=== PATIENT | male | born 1950 | race Caucasian/White ===

== ENCOUNTER 2016-05-11 02:55 | Inpatient (IN) | payer OTHER ==
[~2016-05-11] VITALS: Ht 185.4 cm; Wt 113.3 kg
[2016-05-11] VITALS (15 sets, daily range): BP systolic 101–179; BP diastolic 57–93; PULSE 65–99; RESP 16–18; TEMP 98.4–103.1; O2SAT 9–100
[~2016-05-11 02:55] MED LIST: ATEN1TAB74 PO; CLAR10TA13 PO; CYMB60CA PO; MORP100T40 PO; NEUR600T PO; OXYC-103 PO; POTA25TA4 PO; ZANA4CAP PO
[2016-05-11] MEDS ORDERED: VANCOMYCIN INJ 1,500 MG in SODIUM CHLORID 0.9% 500 ML INJ 500 ML IV ONE (03:30)
[2016-05-11] MEDS ORDERED: metroNIDAZOLE 500 MG INJ 100 ML IV ONE (03:30)
--- NOTE | 2016-05-11 03:42 | PD ---
HPI Chief Complaint: Fever Time Seen by Provider: 03:21 Travel History International Travel<30 days: No Contact w/Intl Traveler<30days: No Traveled to known affect area: No History of Present Illness HPI 66-year-old male presents to the emergency department by private transportation in the care of his spouse for evaluation of fever and chills. According to the just prior to arrival to the emergency department around 2 AM patient had a shaking chill with associated right ureter. administer ibuprofen. Patient is been taking Cipro for complaint of lower abdominal pain onset consistent with history of previous episodes of diverticulitis. Patient denies any abdominal pain at this time. Patient's spouse have not noticed any complaint of headache no sore throats states throat is chronically sore because of postnasal drainage or cough congestion shortness of breath abdominal pain at this time nausea vomiting diarrhea dysuria frequency urgency new joint pain or joint swelling or skin rash. Reportedly on before taking Cipro patient did have bloody mucoid stool. Patient has been admitted before in the past for sepsis related to diverticulitis. Patient also has history of atrial fibrillation and only takes aspirin for and coagulation therapy also has history of significant chronic back pain with previous surgeries pain pump and nerve stimulator and is on multiple chronic pain medications daily. Patient rates discomfort at this time 7/10 in intensity consistent with his chronic pain syndrome. Patient is unable to identify exacerbating or alleviating factors. PFSH Past Medical History Narrative Medical Atrial fibrillation, chronic pain syndrome, diverticulitis, hypertension, spinal stenosis, back surgery 2, morphine pump, nerve stimulator, no alcohol use no tobacco use; nursing notes reviewed Blood Disorders: No Cancer: No Cardiovascular Problems: Yes Diminished Hearing: No Endocrine: No Gastrointestinal Disorders: Yes (DIVERTICULITIS/DUODENUM) Genitourinary: No Hypertension: Yes Immune Disorder: No Implanted Vascular Access Dvce: Yes Musculoskeletal: Yes ("spinal stenosis") Neurologic: Yes (CHRONIC BACK PAIN) Psychiatric: No Reproductive: No Respiratory: No ?: Not Past Surgical History Abdominal Surgery: No Body Medical Devices: NONFUNCTIONING NERVE STIMULATOR Cardiac Surgery: No Ear Surgery: No Endocrine Surgery: No Eye Surgery: No Genitourinary Surgery: No Gynecologic Surgery: No Oral Surgery: No Thoracic Surgery: No Tonsillectomy: Yes Other Surgery: Yes ("back surgery twice,nerve stimulators placed,still in but not working") Social History Alcohol Use: No Tobacco Use: No (electronic cig) Substance Use: No Allergies-Medications (Allergen,Severity, Reaction): Coded Allergies: Cephalosporins (Verified Allergy, Severe, RASH, 05/11/16) Erythromycin (Verified Allergy, Severe, 05/11/16) Penicillin (Verified Allergy, Severe, RASH, 05/11/16) Sulfa (Verified Allergy, Severe, 05/11/16) Reported Meds & Prescriptions Reported Meds & Active Scripts Active Reported Valium (Diazepam) 10 Mg Tab 10 Mg PO BID PRN Cipro (Ciprofloxacin HCl) 500 Mg Tab 500 Mg PO BID Ibuprofen 600 Mg Tab 600 Mg PO Q6H PRN Lortab (Hydrocodone-Acetaminophen) 10-325 Mg Tab 1 Tab PO Q4H PRN Zanaflex (Tizanidine HCl) 4 Mg Tab 4 Mg PO TID Oxycontin (Oxycodone HCl) 10 Mg Tab 10 Mg PO Q8HR Morphine Sulfate CR (Morphine Sulfate) 100 Mg Tab Q6HR Claritin-D 24 HR (Loratadine-Pseudoephedrine 24 HR) 10-240 Mg Tab 1 Tab PO DAILY Neurontin (Gabapentin) 600 Mg Tab 600 Mg PO BID Cymbalta DR (Duloxetine HCl) 60 Mg Capdr 60 Mg PO DAILY Tenormin (Atenolol) 50 Mg Tab 50 Mg PO BID Review of Systems Except as stated in HPI: all other systems reviewed are Neg General / Constitutional: Positive: Fever, Chills HENT: Positive: Sore Throat (chronic), No: Headaches, Rhinorrhea, Congestion, Neck Pain Cardiovascular: No: Chest Pain or Discomfort, Palpitations, Tachycardia, Diaphoresis Respiratory: No: Cough, Shortness of Breath, Wheezing Gastrointestinal: Positive: Diarrhea, No: Nausea, Vomiting, Abdominal Pain ( ) Genitourinary: No: Dysuria, Flank Pain Musculoskeletal: Positive: Pain (chronic low back pain), No: Myalgias, Arthralgias Neurologic: No: Weakness, Dizziness, Syncope, Focal Abnormalities, Coordination Problem Psychiatric: No: Anxiety Endocrine: No: Heat Intolerance, Cold Intolerance Hematologic/Lymphatic: No: Easy Bruising Physical Exam Narrative GENERAL: Well-developed well-nourished pale male in no acute distress no respiratory distress SKIN: Warm and dry. Fine dry rash without petechia or purpura or vesicles or pustules HEAD: Atraumatic. Normocephalic. EYES: Pupils equal and round. No scleral icterus. No injection or drainage. ENT: No nasal bleeding or discharge. Mucous membranes pink and moist. Airway is patent. No sinus tenderness to percussion. NECK: Trachea midline. No JVD. Supple no meningismus no nuchal rigidity nontender to direct palpation along the cervical spine CARDIOVASCULAR: Intermittently increased irregular irregular rate and rhythm. RESPIRATORY: No accessory muscle use. Clear to auscultation. Breath sounds equal bilaterally. GASTROINTESTINAL: Abdomen soft, non-tender, nondistended. Hepatic and splenic margins not palpable. MUSCULOSKELETAL: Extremities without clubbing, cyanosis, or edema. No obvious deformities. NEUROLOGICAL: Awake and alert. No obvious cranial nerve deficits. Motor grossly within normal limits. Five out of 5 muscle strength in the arms and legs. Normal speech. PSYCHIATRIC: Appropriate mood and affect; insight and judgment normal. Data Data Last Documented VS Vital Signs Date Time Temp Pulse Resp B/P Pulse Ox O2 Delivery O2 Flow Rate FiO2 05/11/16 05:35 100.0 05/11/16 04:51 87 16 132/76 Nasal Cannula 2 05/11/16 03:30 96 Orders Electrocardiogram (05/11/16 03:21) Complete Blood Count With Diff (05/11/16 03:21) Comprehensive Metabolic Panel (05/11/16 03:21) Prothrombin Time / Inr (Pt) (05/11/16 03:21) Act Partial Throm Time (Ptt) (05/11/16 03:21) Lactic Acid Sepsis Protocol (05/11/16 03:21) Magnesium (Mg) (05/11/16 03:21) Lipase (05/11/16 03:21) Troponin I (05/11/16 03:21) Urinalysis - C+S If Indicated (05/11/16 03:21) Blood Culture (05/11/16 03:21) Chest, Single Ap (05/11/16 03:21) Blood Glucose (05/11/16 03:21) Ecg Monitoring (05/11/16 03:21) Iv Access Insert/Monitor (05/11/16 03:21) Oximetry (05/11/16 03:21) Oxygen Administration (05/11/16 03:21) Ct Abd/Pel W Iv Contrast(Rout) (05/11/16 03:21) Vancomycin Inj (Vancomycin Inj) (05/11/16 03:30) Metronidazole 500 Mg Inj (Flagyl 500 Mg (05/11/16 03:30) Acetaminophen (Tylenol) (05/11/16 04:15) Sodium Chlor 0.9% 1000 Ml Inj (Ns 1000 M (05/11/16 04:45) Aztreonam Inj (Azactam Inj) (05/11/16 05:15) Sodium Chlor 0.9% 1000 Ml Inj (Ns 1000 M (05/11/16 05:15) Iohexol 350 Inj (Omnipaque 350 Inj) (05/11/16 05:34) Sodium Chlor 0.9% 1000 Ml Inj (Ns 1000 M (05/11/16 05:45) Labs Laboratory Tests Test 05/11/16 05/11/16 04:00 04:20 White Blood Count 11.5 TH/MM3 Red Blood Count 4.95 MIL/MM3 Hemoglobin 14.9 GM/DL Hematocrit 45.9 % Mean Corpuscular Volume 92.6 FL Mean Corpuscular Hemoglobin 30.0 PG Mean Corpuscular Hemoglobin 32.4 % Concent Red Cell Distribution Width 14.2 % Platelet Count 235 TH/MM3 Mean Platelet Volume 7.6 FL Neutrophils (%) (Auto) 91.2 % Lymphocytes (%) (Auto) 3.3 % Monocytes (%) (Auto) 3.6 % Eosinophils (%) (Auto) 0.2 % Basophils (%) (Auto) 1.7 % Neutrophils # (Auto) 10.5 TH/MM3 Lymphocytes # (Auto) 0.4 TH/MM3 Monocytes # (Auto) 0.4 TH/MM3 Eosinophils # (Auto) 0.0 TH/MM3 Basophils # (Auto) 0.2 TH/MM3 CBC Comment DIFF FINAL Differential Comment Prothrombin Time 11.3 SEC Prothromb Time International 1.0 RATIO Ratio Activated Partial 24.6 SEC Thromboplast Time Sodium Level 140 MEQ/L Potassium Level 4.6 MEQ/L Chloride Level 101 MEQ/L Carbon Dioxide Level 29.8 MEQ/L Anion Gap 9 MEQ/L Blood Urea Nitrogen 16 MG/DL Creatinine 1.10 MG/DL Estimat Glomerular Filtration 67 ML/MIN Rate Random Glucose 230 MG/DL Lactic Acid Level 4.2 mmol/L Calcium Level 8.9 MG/DL Magnesium Level 1.9 MG/DL Total Bilirubin 0.4 MG/DL Aspartate Amino Transf 12 U/L (AST/SGOT) Alanine Aminotransferase 21 U/L (ALT/SGPT) Alkaline Phosphatase 84 U/L Troponin I LESS THAN 0.02 NG/ML Total Protein 7.8 GM/DL Albumin 3.6 GM/DL Lipase 50 U/L Urine Color YELLOW Urine Turbidity CLEAR Urine pH 5.5 Urine Specific [place] 1.014 Urine Protein TRACE mg/dL Urine Glucose (UA) NEG mg/dL Urine Ketones NEG mg/dL Urine Occult Blood NEG Urine Nitrite NEG Urine Bilirubin NEG Urine Leukocyte Esterase NEG Urine Squamous Epithelial 0-5 /hpf Cells Urine Mucus OCC /lpf Microscopic Urinalysis Comment CULT NOT INDICATED MDM Medical Decision Making Medical Screen Exam Complete: Yes Emergency Medical Condition: Yes Medical Record Reviewed: Yes Interpretation(s) EKG: Atrial fibrillation with controlled ventricular response of [address] -T changes throughout with ST segment depression no acute ST segment elevation Q wave noted inferiorly age-indeterminate Chest x-ray bibasilar atelectasis versus scarring no clear lobar infiltrate reading by me CBC is automated differential white cell count 11,500 with 91% neutrophils marked left shift manual differential not performed Lactic acid: Elevated consistent with severe sepsis of 4.2 Metabolic panel remarkable for normal range bicarbonate, anion gap, but random hyperglycemia of 230 Urinalysis: Is in normal range Coagulation studies: Are within normal range Troponin I: Less than 0.02 Last Impressions Chest X-Ray 05/11/16320 Signed Impressions: Service Date/Time: Wednesday, May 11, 2016 04:16 - CONCLUSION: Mild linear opacities at the lung bases bilaterally likely representing atelectasis. Otherwise, no acute finding is identified. Ricardo Victoria MD Abdomen/Pelvis CT 05/11/16320 Signed Impressions: Service Date/Time: Wednesday, May 11, 2016 05:10 - CONCLUSION: 1. No acute finding is identified within the abdomen or pelvis. 2. There is airspace consolidation in the right lung base. 3. Nonacute findings include hepatomegaly and gallbladder sludge. Ricardo Victoria MD Differential Diagnosis Febrile illness, diverticulitis, pneumonia, sepsis Narrative Course IV access obtained specimens collected and sent for resulting patient administered IV Flagyl and vancomycin as he is taking Cipro since and is allergic to cephalosporins penicillin and erythromycin and sulfa drugs. Patient also ordered to receive normal saline at 125 cc per hour as patient is hypertensive; acetaminophen ordered Azactam 2 g IV piggyback ordered Patient's blood pressure 132 mmHg systolic and 1 L bolus normal saline administered with plan for additional liter bolus of normal saline was continued maintenance fluids at 1 25 cc per hour patient at 5:25 AM has returned from [place]; patient reports that he feels improved denies any chills denies any weakness denies shortness of breath denies chest pain denies abdominal pain nausea or vomiting or diarrhea. At 5:[address] Abdomen and pelvis with contrast is resulted per reading radiologist Dr. Cornejo no acute findings in the abdomen or pelvis airspace consolidation right lung base nonacute findings included hepatomegaly and gallbladder sludge Critical Care Narrative Aggregate critical care time was 35 minutes. Time to perform other separately billable procedures was not included in the critical care time. My time did not include minutes spent treating any other patients simultaneously or on activities that did not directly contribute to the patient's treatment. The services I provided to this patient were to treat and/or prevent clinically significant deterioration that could result in: Septic shock, I provided critical care services requiring my management, as noted below: Chart data review, documentation time, medication orders and management, vital sign assessments/reviewing monitor data, ordering and reviewing lab tests, ordering and interpreting/reviewing x-rays and diagnostic studies, care of the patient and discussion of the patient with the admitting physicians. Sepsis Criteria SIRS Criteria (2 or more): Temp > 100.9 or < 96.8, Heart rate over 90 Severe Sepsis (+one): Lactate >2 Septic Shock Criteria: Lactic acid >=4 Physician Communication Physician Communication call placed to drawing in hand service Diagnosis Primary Impression: Sepsis Additional Impression: Pneumonia Admitting Information Admitting Physician Requests: Admit Basia Garay MD May 11, 2016 03:42
[2016-05-11] MEDS ORDERED: NEUR600T PO (03:43)
[2016-05-11] MEDS ORDERED: OXYC-259 PO (03:43)
[2016-05-11] MEDS ORDERED: CYMB60CA PO (03:43)
[2016-05-11] MEDS ORDERED: LORA-400 PO (03:43)
[2016-05-11] MEDS ORDERED: TIZA4 PO (03:43)
[2016-05-11] MEDS ORDERED: MORP100T40 (03:43)
[2016-05-11] MEDS ORDERED: HYDR-3535 PO (03:43)
[2016-05-11] MEDS ORDERED: ATEN1TAB74 PO (03:43)
[2016-05-11] MEDS ORDERED: IBUP-232 PO (03:43)
[2016-05-11] MEDS ORDERED: CIPR-9 PO (03:43)
[2016-05-11 04:13] LABS: AUTOMATED NEUTROPHIL # 10.5 TH/MM3 (1.8-7.7); BASOPHIL # 0.2 TH/MM3 (0-0.2); BASOPHIL % 1.7 % (0.0-2.0); EOSINOPHIL % 0.2 % (0.0-4.0); HEMATOCRIT 45.9 % (39.0-51.0); LYMPH % 3.3 % (9.0-44.0); LYMPHOCYTE # 0.4 TH/MM3 (1.0-4.8); MEAN CELL VOLUME 92.6 FL (80.0-100.0); MEAN CORPUSCULAR HGB CONC 32.4 % (32.0-36.0); MONO % 3.6 % (0.0-8.0); NEUT % 91.2 % (16.0-70.0); PLATELET COUNT 235 TH/MM3 (150-450); RED BLOOD COUNT 4.95 MIL/MM3 (4.50-5.90); RED CELL DISTRIBUTION WIDTH 14.2 % (11.6-17.2); WHITE BLOOD COUNT 11.5 TH/MM3 (4.0-11.0)
[2016-05-11] MEDS ORDERED: DIAZ10 PO (04:13)
[2016-05-11] MEDS ORDERED: ACETAMINOPHEN 325 MG TAB PO ONE (04:15)
[2016-05-11 04:21] LABS: CHLORIDE 101 MEQ/L (98-107); POTASSIUM 4.6 MEQ/L (3.5-5.1); SODIUM (NA) 140 MEQ/L (136-145)
[2016-05-11 04:22] LABS: HEMO FLAGS DIFF FINAL
[2016-05-11 04:25] LABS: ANION GAP 9 MEQ/L (5-15); BICARBONATE 29.8 MEQ/L (21.0-32.0); BLOOD UREA NITROGEN 16 MG/DL (7-18); MAGNESIUM 1.9 MG/DL (1.5-2.5)
[2016-05-11 04:28] LABS: ALT (GPT) 21 U/L (12-78); AST (GOT) 12 U/L (15-37); GLOMERULAR FILTRATION RATE 67 ML/MIN (>89)
[2016-05-11 04:29] LABS: TOTAL BILIRUBIN ADULT 0.4 MG/DL (0.2-1.0)
[2016-05-11 04:30] LABS: BLOOD, URINE NEG (NEG); GLUCOSE,URINE NEG (NEG); KETONE, URINE NEG (NEG); NITRITE,URINE NEG (NEG); PH, URINE 5.5 (5.0-8.5)
[2016-05-11 04:31] LABS: ALKALINE PHOSPHATASE 84 U/L (45-117); APTT (PATIENT) 24.6 SEC (24.3-30.1); PROTHROMBIN TIME - PATIENT 11.3 SEC (9.8-11.6)
--- NOTE | 2016-05-11 04:38 | RADHPO ---
EXAM DATE/TIME: 05/11/2016 04:16 [facility] COMPARISON: CHEST SINGLE AP, June 07, 2013, 14:01. INDICATIONS : Fever. MEDICAL HISTORY : AFIB SURGICAL HISTORY : None. ENCOUNTER: Initial ACUITY: 1 day PAIN SCORE: 8/10 LOCATION: Bilateral chest FINDINGS: Portable AP view of the chest demonstrates a normal-sized cardiac silhouette. There are mild linear o pacities in the lower lung zones bilaterally. Otherwise, no effusion, consolidation, or pneumothorax is visualized. The bones and soft tissues demonstrate no acute abnormality. CONCLUSION: Mild linear opacities at the lung bases bilaterally likely representing atelectasis. Otherwise, no ac winifred finding is identified. Ricardo Victoria MD on May 11, 2016 at 4:36 Board Certified Radiologist. This report was verified electronically.
[2016-05-11 04:43] LABS: URINE COLOR YELLOW (YELLW/STRAW)
[2016-05-11 04:44] LABS: COMMENT (UR) CULT NOT INDICATED; CULTURE IF INDICATED CULT NOT INDICATED; MUCUS URINE OCC /lpf (OCC); SQUAMOUS EPITHELIAL CELL URINE 0-5 /hpf (0-5)
[2016-05-11] MEDS ORDERED: AZTREONAM INJ 2,000 MG in SODIUM CHLORIDE 0.9% INJ 100 ML IV ONE (05:15)
[2016-05-11] MEDS ORDERED: SODIUM CHLOR 0.9% 1000 ML INJ 1,000 ML IV ONE ×2 (05:15→05:45)
[2016-05-11] MEDS ORDERED: IOHEXOL 350 MG/ML 10 ML VIAL (for RAD DIAG) IV ONE (05:34)
[2016-05-11] MEDS: SODIUM CHLOR 0.9% 1000 ML INJ 1,000 ML IV SCH ×3 (05:34→23:02)
--- NOTE | 2016-05-11 05:48 | RADHPO ---
EXAM DATE/TIME: 05/11/2016 05:10 [facility] COMPARISON: CHEST SINGLE AP, May 11, 2016, 4:16. CT ABDOMEN & PELVIS W/O CONTRAST, May 13, 2009, 0:03. INDICATIONS : Lower abdominal pain four days ago. Fever today. IV CONTRAST: 96 cc Omnipaque 350 (iohexol) IV ORAL CONTRAST: No oral contrast ingested. RADIATION DOSE: 21.22 CTDIvol (mGy) MEDICAL HISTORY : Hypertension. Diverticulitis. Spinal stenosis. SURGICAL HISTORY : Nerve stimulator. ENCOUNTER: Initial ACUITY: 1 day PAIN SCALE: 0/10 LOCATION: Abdomen. TECHNIQUE: Volumetric scanning of the abdomen and pelvis was performed. Using automated exposure control and ad justment of the mA and/or kV according to patient size, radiation dose was kept as low as reasonably achievable to obtain optimal diagnostic quality images. FINDINGS: LOWER LUNGS: There is mild airspace consolidation at the right lung base. LIVER: The liver measures 22.1 cm in length. No focal lesion is seen. There is no dilation of the biliary t ree. No calcified gallstones. There is sludge layering within the gallbladder. No gallbladder wall t hickening or inflammation is present. SPLEEN: Normal size without lesion. PANCREAS: Within normal limits. KIDNEYS: Normal in size and shape. There is no mass, stone or hydronephrosis. ADRENAL GLANDS: Within normal limits. VASCULAR: There is no aortic aneurysm. There is mild atherosclerotic disease. BOWEL/MESENTERY: The stomach, small bowel, and colon demonstrate no acute abnormality. There is no free intraperitone al air or fluid. ABDOMINAL WALL: There is a subcutaneously implanted device along the right flank. There is also a subcutaneously impl anted neurostimulator device in the left gluteal region. RETROPERITONEUM: There is no lymphadenopathy. BLADDER: No wall thickening or mass. REPRODUCTIVE: Within normal limits. INGUINAL: There is no lymphadenopathy or hernia. MUSCULOSKELETAL: There are mild degenerative changes of the lumbar spine. Spinal stimulator leads extend into the thor acic spinal canal posteriorly. CONCLUSION: 1. No acute finding is identified within the abdomen or pelvis. 2. There is airspace consolidation in the right lung base. 3. Nonacute findings include hepatomegaly and gallbladder sludge. Ricardo Victoria MD on May 11, 2016 at 5:43 Board Certified Radiologist. This report was verified electronically.
[2016-05-11 06:06] LABS: LACTIC ACID GHOST NOT REPORTABLE
[2016-05-11] MEDS ORDERED: SODIUM CHLORIDE 0.9% FLUSH 10 ML FLUSH IVF PRN ×2 (06:15→06:30)
--- NOTE | 2016-05-11 06:33 | HHI.PR ---
Subjective Remarks I was notified by Dr. Garay of a patient requiring ICU admission for sepsis. Briefly, this 66yM with chronic pain, diabetes, history of diverticulitis presents with one day of LLQ pain and diarrhea and then fevers, chills. in the ER he had a leukocytosis, fever, lactate of 4. His work-up includes CT abd/ pelvis without overt intra-abdominal source, but does include basilar pulmonary consolidation. He received Vanc/Azactam/Flagyl IV and iv fluids. Because of his lactic acidosis and concern for sepsis, Dr. Garay feels an ICU bed is the most appropriate place to monitor him. Objective Vital Signs Date Time Temp Pulse Resp B/P Pulse Ox O2 Delivery O2 Flow Rate FiO2 05/11/16 05:35 100.0 05/11/16 04:51 102.6 87 16 132/76 Nasal Cannula 2 05/11/16 03:30 96 Nasal Cannula 2 05/11/16 03:30 102.9 87 16 98 Nasal Cannula 2 05/11/16 03:25 96 Nasal Cannula 2 05/11/16 03:15 90 16 179/91 94 05/11/16 03:02 103.1 99 18 158/88 92 Result Diagram: 05/11/16 0400 05/11/16 0400 Imaging Last Impressions Chest X-Ray 05/11/16320 Signed Impressions: Service Date/Time: Wednesday, May 11, 2016 04:16 - CONCLUSION: Mild linear opacities at the lung bases bilaterally likely representing atelectasis. Otherwise, no acute finding is identified. Ricardo Victoria MD Abdomen/Pelvis CT 05/11/16320 Signed Impressions: Service Date/Time: Wednesday, May 11, 2016 05:10 - CONCLUSION: 1. No acute finding is identified within the abdomen or pelvis. 2. There is airspace consolidation in the right lung base. 3. Nonacute findings include hepatomegaly and gallbladder sludge. Ricardo Victoria MD Objective Remarks I have personally evaluated the patient. briefly, this middle-aged obese male is lying in bed, in no acute distress. not tachypneic. normal rate, irregularly irregular rhythm. no peripheral edema noted. pleasant and conversant. Assessment and Plan Assessment and Plan Assessment: 66yM with chronic pain, diabetes, and recent diarrhea, fevers, chills, now with biomarker evidence of tissue hypoperfusion in the setting of probable infectious etiology. Severe sepsis is on the differential. Other causes of lactic acidosis and fever could be viral gastroenteritis with dehydration from diarrhea. Possible sources of sepsis in this patient are pneumonia, gastroenteritis, C.Diff colitis. I agree with Dr. Arellano' assessment that this patient appropriately responded to iv fluid resuscitation and is clinically improving. I think it may be prudent given his comorbid conditions to watch him for a short course in the Intensive Care Unit, but would have a low threshold for de-escalation of level of monitoring if he continues to improve. I think this patient can be safely managed by the admitting team. Recommendations: -- admit to the ICU -- the first coat operator service will be peripherally aware of the patient, but will not directly participate in the care and management of this patient unless asked to do so by the primary service. -- we are happy to re-evaluate the patient at any point if you have questions or concerns. I agree with the anticipated plan of iv abx, f/u culture data, iv fluid resuscitation, trending of lactic acid. Nick Jacobs MD May 11, 2016 06:32
[2016-05-11] MEDS ORDERED: MORP1TAB26 PO (06:58)
[2016-05-11] MEDS ORDERED: MORP1TAB27 PO (06:58)
[2016-05-11] MEDS ORDERED: SODIUM CHLORIDE 0.9% FLUSH 10 ML FLUSH IV FLUSH SCH (09:00)
[2016-05-11] MEDS ORDERED: PRAV40TA2 PO (11:14)
[2016-05-11] MEDS ORDERED: NALOXONE HCL 0.4 MG/ML AMP IV PRN (11:15)
[2016-05-11] MEDS ORDERED: ACETAMINOPHEN 325 MG TAB PO PRN (11:15)
[2016-05-11] MEDS ORDERED: ONDANSETRON HCL 4 MG/2 ML VIAL IVP PRN (11:15)
[2016-05-11] MEDS ORDERED: SODIUM CHLORIDE 0.9% FLUSH 10 ML FLUSH IV FLUSH PRN (11:15)
[2016-05-11] MEDS ORDERED: [UNRECOGNIZED DRUG - OTHER] PO (11:19)
[2016-05-11] MEDS ORDERED: ERGO1CAP10 PO (11:19)
[2016-05-11] MEDS ORDERED: CART120C PO (11:19)
[2016-05-11] MEDS ORDERED: ASPI325T PO (11:19)
[2016-05-11] MEDS ORDERED: MAGN200T PO (11:19)
[2016-05-11] MEDS ORDERED: DICY10CA12 PO (11:19)
[2016-05-11] MEDS ORDERED: COQ1200C PO (11:19)
[2016-05-11] MEDS ORDERED: BUTA1CAP PO (11:19)
[2016-05-11] MEDS ORDERED: DIGO0.25 PO (11:20)
[2016-05-11] MEDS ORDERED: GABAPENTIN 300 MG CAP PO SCH (12:00)
[2016-05-11] MEDS: DULoxetine HCl DR 60 MG CAP PO SCH (12:01)
[2016-05-11] MEDS: ATENOLOL 50 MG TAB PO SCH ×3 (12:01→23:54)
[2016-05-11] MEDS: ENOXAPARIN SODIUM 40 MG/0.4 ML SYRINGE SQ SCH (12:02)
[2016-05-11] MEDS ORDERED: oxyCODONE HCL 10 MG CONTROLLED RELEASE TAB PO SCH (14:00)
[2016-05-11] MEDS: AZTREONAM INJ 2,000 MG in SODIUM CHLORIDE 0.9% INJ 100 ML IV SCH ×2 (14:25→21:40)
[2016-05-11] MEDS: RESP: ALBUTEROL 2.5 MG/IPRATROPIUM 0.5 MG NEB (SCH) NEB ×2 (14:25→19:20)
[2016-05-11] MEDS: LEVOFLOXACIN 750 MG PREMIX INJ 150 ML IV SCH (15:09)
[2016-05-11] MEDS: MORPHINE SULFATE 60 MG CONTROLLED RELEASE TAB PO SCH ×2 (15:18→21:37)
--- NOTE | 2016-05-11 20:57 | EKG ---
Date Performed: 05/11/2016 Time Performed: 03:38:50 PTAGE: 66 years EKG: Atrial fibrillation. Short QT interval Extensive ST-T changes may be due to myocardial isch emia Abnormal ECG PREVIOUS TRACING : 06/07/2013 13.56 DOCTOR: Jordana Tierney Interpretating Date/Time 05/11/2016 20:56:25
[2016-05-11] MEDS ORDERED: MORPHINE SULFATE 100 MG CONTROLLED RELEASE TAB PO SCH (21:00)
[2016-05-11] MEDS: SODIUM CHLORIDE 0.9% FLUSH 10 ML FLUSH IV FLUSH SCH (21:00)
--- NOTE | 2016-05-11 21:00 | MH ---
cc: GABRIELA VICTORIA DATE OF ADMISSION 05/11/2016 ADMISSION DIAGNOSIS Pneumonia. HISTORY OF PRESENT ILLNESS Mr. Thompson is a 66-year-old gentleman who presented to the emergency room today after waking up at night with fevers and chills. The patient states that he has been in his usual state of health until earlier in the week when he started developing lower abdominal cramping, some loose stools, a little bit of pain in his lower left abdomen. He states that he has a history of diverticulosis and he always has some Cipro on hand which he normally treats himself with, with improvement. He states he took the Cipro 500 milligrams twice a day for two days. He did not get the prescription refilled as he stated he was doing well. However, last night in the middle of the night he started having shaking chills and fevers, concerning enough that he came to the emergency room. He states he really has not had a significant cough at all. He states his had mentioned that he had been wheezing more often at night lately. Apparently he does have chronic nasal congestion with a little bit of a postnasal drip which is not new. He denies any chest pain or sudden onset of chest pain or shortness of breath. He does have a history of atrial fibrillation but he denies any palpitations. In terms of his abdominal pain he states that it had actually been doing well. He did decrease his oral intake when he first had the lower abdominal pain almost a week ago. However, he has been eating and drinking well up until the presentation to the emergency room. He is on multiple medications for chronic back and neck pain. PAST MEDICAL HISTORY Significant for: 1. Atrial fibrillation. 2. Chronic pain. 3. Diet-controlled . 4. Diverticulitis. 5. Reflux. 6. Hypertension. 7. Hyperlipidemia. PAST SURGICAL HISTORY Includes: 1. Tonsillectomy. 2. Back surgery. 3. He has had a morphine pump placed on the right side. 4. He has also had spinal stimulator placed on the left. 5. Apparently his morphine come failed. ALLERGIES HE IS ALLERGIC TO PENICILLIN THIS CAUSES RASH AND SWELLING OF HIS THROAT. HE IS ALLERGIC TO BACTRIM, THIS CAUSES BLISTERS AND ULCERATIONS IN HIS MOUTH. ERYTHROMYCIN CAUSES GI UPSET AND DIARRHEA AND CRAMPING. HE THINKS HE MAY BE ALLERGIC TO CEPHALOSPORIN BUT IS KIND OF VAGUE. SOCIAL HISTORY Habits, he really does not consume alcohol. Smoked. He did smoke a pack a day for approximately 15 years, he stopped 5 years ago. He is currently using the electronic cigarettes. Social he is . He is retired. Actually he is on disability because of his back problems. He is a dentist. FAMILY HISTORY Noncontributory. REVIEW OF SYSTEMS He denies any kind of chest pain or palpitations. He does say that he recently called cardiology and they added digoxin to his regimen as he was getting more short of breath and was feeling this is secondary to his atrial fibrillation. He does have chronic nasal congestion since as a child, though his says that he is wheezing, he does not note that he wheezes. He does not really have a significant productive cough with any of this. He does have the lower abdominal pain from his diverticulosis that currently is resolved after his last bout last week and two days of Cipro. He states he has been urinating well. No problems voiding. He does have chronic lower extremity weakness which is part a complication of his back issues but he denies any swelling. He does say that they did have problems with bed bugs recently in his house, and he has had some insect bites. PHYSICAL EXAMINATION VITAL SIGNS: Apparently when he presented to the emergency room he presented to the emergency room with a temperature of 103.1 with a pulse of 99, blood pressure of 158/88 and pulse ox is 92. By the time I see him his temperature is 99.1. His pulse is 74, respirations 16, blood pressure is 156/86, his pulse ox is 99% on 2 liters. GENERAL: This is a very pleasant gentleman lying in the emergency room cot. He looks a little bit slow almost like he might be sedated but then when he converses he is alert and appropriate. He tells me that he is feeling much better than when he came into the emergency room. HEENT: He is normocephalic and traumatic. EOM is intact. He has a clear oral mucosa. NECK: His neck is supple. LUNGS: His lungs really sound clear. He does not have any significant wheezing or rhonchi. CARDIOVASCULAR: Heart is irregular but his heart rate is not elevated. ABDOMEN: His abdomen is globose. He has good bowel sounds in all four quadrants. He has no left lower quadrant tenderness to palpation. He had an area of induration on the right mid abdomen were his morphine pump is. EXTREMITIES: His extremities show no clubbing, cyanosis or edema. He does have some excoriations and old insect bites on his forearms and lower extremities which he says are from the bed bugs. LABORATORY DATA Lab work that was done when he came in showed a white count 11.5, hemoglobin 14.9, hematocrit of 45.9, platelet count of 235. Neutrophils were 91.2. Sodium was 140, potassium was 4.6, BUN was 16, creatinine was 1.1. His GFR was 67. His random glucose was 230. Lactic acid that was done was 4.2. Electrolytes and liver enzymes were normal. PT was 11.3 with an INR of 1.0. PTT of 24.6. His UA was negative. IMAGING When he presented because of his prior history earlier of the diverticulitis and his fevers, CT scan was done as well as a chest x-ray. The chest x-ray really shows what they call mild linear opacities at the lung bases bilaterally, likely representing atelectasis, otherwise no acute findings. The CT scan of the abdomen and pelvis showed mild air space consolidation at the right lung base. It shows the morphine pump in the right flank or subcutaneously implanted device along the right flank which I would think is the morphine pump and implanted neuro stimulator on the left gluteal region. There was sludge within the gallbladder. He also had hepatomegaly and then the air space consolidation in the right lung base. Blood cultures were done and the patient was started on antibiotics by the ER physician because of the elevated lactic acid and the fever. The ER physician felt that the patient might be septic from his pneumonia and actually spoke with the edge burnisher regarding this patient, I think prior to speaking to me. Anyway at this point the patient has been admitted for pneumonia, secondary to his allergies he has been placed on aztreonam and Levaquin as he only had two ____ of Cipro. He is already telling me he is feeling much better, and his temperature curve is coming down. We will continue to monitor. He has atrial fibrillation and has been seen by cardiology and currently is on atenolol, Cardizem and digoxin. He is on a full strength aspirin. We will continue all of these medications. For his chronic pain I reviewed his EHR notes to confirm the of his medication. He is on the morphine 100 twice a day with the 60 in the afternoon. We will continue that regimen. He is also on Lortab 10/325 for breakthrough pain. We will continue that. That seems to be keeping him relatively comfortable. He does have a diagnosis of diet-controlled diabetes. We will continue the diabetic diet. While he is here I have ordered a hemoglobin A1c but looking into his records, it does look like his diabetes has been controlled. I believe his last hemoglobin A1c was 6.5. We will continue the rest of his home medications and hopefully if he is able to respond quickly we will be able to let him be discharged in the next day or so. Further recommendations as the case develops. MD THADDEUS Rodgers/KK /2:46 PM /8:20 PM
[2016-05-11] MEDS: MORPHINE SULFATE 15 MG CONTROLLED RELEASE TAB PO SCH (21:37)
[2016-05-11] MEDS: MORPHINE SULFATE 30 MG CONTROLLED RELEASE TAB PO SCH (21:38)
[2016-05-11] MEDS: ACETAMINOPHEN/HYDROcodone 325 MG/10 MG TAB PO PRN (21:38)
[2016-05-11] MEDS: GABAPENTIN 300 MG CAP PO SCH (21:39)
[2016-05-11] MEDS: PRAVASTATIN SOD 40 MG TAB PO SCH (21:39)
[2016-05-12] VITALS (9 sets, daily range): BP systolic 132–191; BP diastolic 78–99; PULSE 63–88; RESP 16–20; TEMP 97.2–99; O2SAT 96–100
[2016-05-12] MEDS ORDERED: DILTIAZEM-CD 120 MG CAP ER PO SCH (00:45)
[2016-05-12] MEDS: SODIUM CHLOR 0.9% 1000 ML INJ 1,000 ML IV SCH ×2 (00:54→14:24)
[2016-05-12] MEDS: GABAPENTIN 300 MG CAP PO SCH ×3 (06:28→22:12)
[2016-05-12] MEDS: AZTREONAM INJ 2,000 MG in SODIUM CHLORIDE 0.9% INJ 100 ML IV SCH ×3 (06:28→22:12)
[2016-05-12] MEDS: ACETAMINOPHEN/HYDROcodone 325 MG/10 MG TAB PO PRN ×3 (06:33→18:23)
[2016-05-12] MEDS: RESP: ALBUTEROL 2.5 MG/IPRATROPIUM 0.5 MG NEB (SCH) NEB ×3 (07:13→19:53)
[2016-05-12 07:20] LABS: AUTOMATED NEUTROPHIL # 9.7 TH/MM3 (1.8-7.7); BASOPHIL % 0.2 % (0.0-2.0); EOSINOPHIL % 0.4 % (0.0-4.0); HEMATOCRIT 41.3 % (39.0-51.0); LYMPH % 9.1 % (9.0-44.0); MEAN CELL VOLUME 93.4 FL (80.0-100.0); MEAN CORPUSCULAR HEMOGLOBIN 30.8 PG (27.0-34.0); MONO % 5.8 % (0.0-8.0); NEUT % 84.5 % (16.0-70.0); PLATELET COUNT 188 TH/MM3 (150-450); RED BLOOD COUNT 4.42 MIL/MM3 (4.50-5.90); RED CELL DISTRIBUTION WIDTH 14.8 % (11.6-17.2); WHITE BLOOD COUNT 11.4 TH/MM3 (4.0-11.0)
[2016-05-12 07:24] LABS: HEMO FLAGS DIFF FINAL
[2016-05-12 07:29] LABS: CHLORIDE 105 MEQ/L (98-107); POTASSIUM 3.8 MEQ/L (3.5-5.1); SODIUM (NA) 141 MEQ/L (136-145)
[2016-05-12 07:41] LABS: ANION GAP 11 MEQ/L (5-15); BICARBONATE 25.4 MEQ/L (21.0-32.0)
[2016-05-12 07:42] LABS: AST (GOT) 12 U/L (15-37); BLOOD UREA NITROGEN 10 MG/DL (7-18)
[2016-05-12 07:43] LABS: TOTAL BILIRUBIN ADULT 0.6 MG/DL (0.2-1.0)
[2016-05-12 07:44] LABS: ALT (GPT) 19 U/L (12-78); GLOMERULAR FILTRATION RATE 95 ML/MIN (>89)
[2016-05-12 07:45] LABS: ALKALINE PHOSPHATASE 84 U/L (45-117)
[2016-05-12] MEDS ORDERED: MORPHINE SULFATE 60 MG CONTROLLED RELEASE TAB PO SCH (09:00)
[2016-05-12] MEDS: SODIUM CHLORIDE 0.9% FLUSH 10 ML FLUSH IV FLUSH SCH ×2 (09:00→21:00)
[2016-05-12] MEDS: ASPIRIN 325 MG TAB PO SCH (09:50)
[2016-05-12] MEDS: MORPHINE SULFATE 30 MG CONTROLLED RELEASE TAB PO SCH ×2 (09:51→22:16)
[2016-05-12] MEDS: DIGOXIN 0.25 MG TAB PO SCH (09:52)
[2016-05-12] MEDS: MORPHINE SULFATE 15 MG CONTROLLED RELEASE TAB PO SCH ×2 (09:52→22:16)
[2016-05-12] MEDS: MORPHINE SULFATE 60 MG CONTROLLED RELEASE TAB PO SCH ×3 (09:52→22:16)
[2016-05-12] MEDS: DULoxetine HCl DR 60 MG CAP PO SCH (09:52)
[2016-05-12] MEDS ORDERED: ATENOLOL 50 MG TAB PO PRN ×2 (10:15→10:47)
[2016-05-12] MEDS: DILTIAZEM-CD 120 MG CAP ER PO SCH ×2 (10:51→22:17)
[2016-05-12] MEDS: ENOXAPARIN SODIUM 40 MG/0.4 ML SYRINGE SQ SCH (12:28)
--- NOTE | 2016-05-12 13:12 | HHI.PR ---
Subjective Remarks Feels better today. Constipated, states its chronic from the morphine Objective Vitals Vital Signs Date Time Temp Pulse Resp B/P Pulse Ox O2 Delivery O2 Flow Rate FiO2 05/12/16 10:51 18 05/12/16 10:51 18 05/12/16 10:51 18 05/12/16 08:00 98.8 88 18 168/99 99 05/12/16 07:33 18 05/12/16 07:16 97 21 05/12/16 04:00 98.8 68 18 162/87 99 05/12/16 00:00 98.2 69 18 191/98 99 05/11/16 20:00 98.4 74 18 158/93 97 05/11/16 19:21 96 21 05/11/16 16:34 71 16 148/77 96 05/11/16 14:00 74 16 156/86 99 Nasal Cannula 2 05/11/16 05/11/16 05/12/16 15:00 23:00 07:00 Intake Total 1100 ml 3116 ml 1545 ml Output Total 1050 ml 550 ml Balance 50 ml 2566 ml 1545 ml Intake Oral 760 ml 560 ml IV Total 1100 ml 2356 ml 985 ml Output Urine Total 1050 ml 550 ml # Voids 2 # Bowel Movements 0 Result Diagram: 05/12/16 0645 05/12/16 0645 Imaging Last Impressions Chest X-Ray 05/11/16320 Signed Impressions: Service Date/Time: Wednesday, May 11, 2016 04:16 - CONCLUSION: Mild linear opacities at the lung bases bilaterally likely representing atelectasis. Otherwise, no acute finding is identified. Ricardo Victoria MD Abdomen/Pelvis CT 05/11/16320 Signed Impressions: Service Date/Time: Wednesday, May 11, 2016 05:10 - CONCLUSION: 1. No acute finding is identified within the abdomen or pelvis. 2. There is airspace consolidation in the right lung base. 3. Nonacute findings include hepatomegaly and gallbladder sludge. Ricardo Victoria MD Objective Remarks Sitting in chair awake and oriented cta no wheezingx irregular no edema A/P Problem List: (1) Pneumonia Status: Acute Plan: clinically improving on aztreonam and levaquin (2) Atrial fibrillation Status: Chronic Plan: contunue agents for rate control aspirin (3) HTN (hypertension) Status: Chronic Plan: stop saline , cont home medications (4) Chronic pain Status: Chronic Plan: continue morphine , pain meds as recent outpatient note from pain management (5) Type 2 diabetes mellitus Status: Chronic Plan: diabetic diet Adeline Winter MD May 12, 2016 13:12
[2016-05-12] MEDS: DOCUSATE SODIUM 50 MG/SENNA 8.6 MG TAB PO SCH ×2 (14:23→22:17)
[2016-05-12] MEDS: LEVOFLOXACIN 750 MG PREMIX INJ 150 ML IV SCH (14:24)
[2016-05-12] MEDS: PRAVASTATIN SOD 40 MG TAB PO SCH (22:17)
[2016-05-12] MEDS: ATENOLOL 50 MG TAB PO SCH (22:17)
[2016-05-13] VITALS (7 sets, daily range): BP systolic 149–163; BP diastolic 68–99; PULSE 60–156; RESP 18–20; TEMP 98.1–98.6; O2SAT 96–99
[2016-05-13] MEDS: GABAPENTIN 300 MG CAP PO SCH ×3 (05:57→21:43)
[2016-05-13] MEDS: AZTREONAM INJ 2,000 MG in SODIUM CHLORIDE 0.9% INJ 100 ML IV SCH ×3 (05:58→21:42)
[2016-05-13 07:14] LABS: AUTOMATED NEUTROPHIL # 5.1 TH/MM3 (1.8-7.7); BASOPHIL % 0.4 % (0.0-2.0); EOSINOPHIL # 0.1 TH/MM3 (0-0.4); EOSINOPHIL % 1.6 % (0.0-4.0); HEMATOCRIT 38.9 % (39.0-51.0); LYMPH % 17.1 % (9.0-44.0); LYMPHOCYTE # 1.2 TH/MM3 (1.0-4.8); MEAN CELL VOLUME 93.8 FL (80.0-100.0); MEAN CORPUSCULAR HEMOGLOBIN 30.9 PG (27.0-34.0); MONO % 7.7 % (0.0-8.0); NEUT % 73.2 % (16.0-70.0); PLATELET COUNT 181 TH/MM3 (150-450); RED BLOOD COUNT 4.15 MIL/MM3 (4.50-5.90); RED CELL DISTRIBUTION WIDTH 14.9 % (11.6-17.2); WHITE BLOOD COUNT 6.9 TH/MM3 (4.0-11.0)
[2016-05-13 07:18] LABS: HEMO FLAGS DIFF FINAL
[2016-05-13 07:21] LABS: CHLORIDE 107 MEQ/L (98-107); POTASSIUM 3.9 MEQ/L (3.5-5.1); SODIUM (NA) 141 MEQ/L (136-145)
[2016-05-13] MEDS: RESP: ALBUTEROL 2.5 MG/IPRATROPIUM 0.5 MG NEB (SCH) NEB ×2 (07:23→19:48)
[2016-05-13 07:28] LABS: ANION GAP 9 MEQ/L (5-15); BICARBONATE 24.8 MEQ/L (21.0-32.0); BLOOD UREA NITROGEN 14 MG/DL (7-18); MAGNESIUM 2.4 MG/DL (1.5-2.5)
[2016-05-13 07:35] LABS: ALKALINE PHOSPHATASE 91 U/L (45-117); ALT (GPT) 58 U/L (12-78); AST (GOT) 90 U/L (15-37); GLOMERULAR FILTRATION RATE 92 ML/MIN (>89); TOTAL BILIRUBIN ADULT 0.6 MG/DL (0.2-1.0)
[2016-05-13] MEDS: SODIUM CHLORIDE 0.9% FLUSH 10 ML FLUSH IV FLUSH SCH ×2 (09:00→21:00)
[2016-05-13] MEDS: MORPHINE SULFATE 30 MG CONTROLLED RELEASE TAB PO SCH ×2 (09:00→21:45)
[2016-05-13] MEDS: MORPHINE SULFATE 15 MG CONTROLLED RELEASE TAB PO SCH ×2 (09:00→21:46)
[2016-05-13] MEDS: ENOXAPARIN SODIUM 40 MG/0.4 ML SYRINGE SQ SCH (11:08)
[2016-05-13] MEDS: DOCUSATE SODIUM 50 MG/SENNA 8.6 MG TAB PO SCH ×2 (11:08→21:46)
[2016-05-13] MEDS: MORPHINE SULFATE 60 MG CONTROLLED RELEASE TAB PO SCH ×3 (11:13→21:45)
[2016-05-13] MEDS: ASPIRIN 325 MG TAB PO SCH (11:14)
[2016-05-13] MEDS: ATENOLOL 50 MG TAB PO SCH ×2 (11:14→21:46)
[2016-05-13] MEDS: DILTIAZEM-CD 120 MG CAP ER PO SCH ×2 (11:14→21:47)
[2016-05-13] MEDS: DIGOXIN 0.25 MG TAB PO SCH (11:14)
[2016-05-13] MEDS: DULoxetine HCl DR 60 MG CAP PO SCH (11:14)
[2016-05-13] MEDS ORDERED: GLUCAGON 1 MG/ML VIAL OTHER PRN (12:45)
[2016-05-13] MEDS ORDERED: DEXTROSE 50% IN WATER 50 ML VIAL(D50) IV PUSH PRN (12:45)
--- NOTE | 2016-05-13 13:09 | HHI.PR ---
Subjective Remarks Feels good. no wheezing at night , aymptomatic during episode of Vtach, States he had called cardiology a couple of months ago due to increases Sob and that was when the digoxin was added. Objective Vitals Vital Signs Date Time Temp Pulse Resp B/P Pulse Ox O2 Delivery O2 Flow Rate FiO2 05/13/16 07:25 97 21 05/13/16 06:45 156 05/13/16 04:00 98.3 60 18 160/82 97 05/13/16 00:00 98.1 74 20 150/94 99 05/12/16 20:00 63 05/12/16 20:00 97.2 69 20 132/88 98 05/12/16 19:53 96 21 05/12/16 16:00 98.7 82 16 140/78 98 05/12/16 15:23 18 05/12/16 13:19 18 05/12/16 05/12/16 05/13/16 15:00 23:00 07:00 Intake Total 2541 ml 750 ml Output Total 2200 ml Balance -2200 ml 2541 ml 750 ml Intake Oral 600 ml 240 ml IV Total 1941 ml 510 ml Output Urine Total 2200 ml # Voids 2 # Bowel Movements 0 Result Diagram: 05/13/16 0633 05/13/16 0633 Imaging Last Impressions Chest X-Ray 05/11/16320 Signed Impressions: Service Date/Time: Wednesday, May 11, 2016 04:16 - CONCLUSION: Mild linear opacities at the lung bases bilaterally likely representing atelectasis. Otherwise, no acute finding is identified. Ricardo Victoria MD Abdomen/Pelvis CT 05/11/16320 Signed Impressions: Service Date/Time: Wednesday, May 11, 2016 05:10 - CONCLUSION: 1. No acute finding is identified within the abdomen or pelvis. 2. There is airspace consolidation in the right lung base. 3. Nonacute findings include hepatomegaly and gallbladder sludge. Ricardo Victoria MD Objective Remarks Sitting in chair awake and oriented cta no wheezingx irregular no edema A/P Problem List: (1) Pneumonia Status: Acute Plan: clinically improving on aztreonam and levaquin (2) Atrial fibrillation Status: Chronic Plan: continue agents for rate control, aspirin, episode of vtach early am, echo ordered. cardilogy consult (3) HTN (hypertension) Status: Chronic Plan: stop saline , cont home medications add lisinopril 10 ( he states a bp med bottomed him out doesnt know which) (4) Chronic pain Status: Chronic Plan: continue morphine , pain meds as recent outpatient note from pain management has appt thu with his pain mangement doctor (5) Type 2 diabetes mellitus Status: Chronic Plan: diabetic diet am labs glucose in 180' will add sliding scale Adeline Winter MD May 13, 2016 13:09
[2016-05-13] MEDS: INSULIN ASPART SUPPLEMENTAL SCALE SQ SCH ×2 (16:00→21:00)
[2016-05-13] MEDS: LISINOPRIL 10 MG TAB PO SCH (16:16)
[2016-05-13] MEDS: LEVOFLOXACIN 750 MG PREMIX INJ 150 ML IV SCH (16:16)
--- NOTE | 2016-05-13 16:20 | MB ---
cc: NAY MURRIETA MD DATE OF CONSULTATION: 05/13/2016 REASON FOR CONSULTATION: HISTORY OF PRESENT ILLNESS: The patient is a 66 year-old gentleman who presents to the hospital with fever and chills. He had a 103 degree temperature. He came to the emergency department where he subsequently was admitted. His fever and chills were associated with lower abdominal cramping and loose stools. He did take some Cipro prior to his admission to the hospital. Since his admission to hospital he has felt much better. He has a history of chronic atrial fibrillation, initially beginning in 1988 with conversion back to sinus rhythm and with medications, and again in 1993. He was seen approximately 8 or 9 months ago by cardiology, again with atrial fibrillation. At that time it was felt that it was permanent nature, atrial fibrillation, and he was treated medically. He was given diltiazem 120 milligrams twice a day with atenolol. Since that time he was felt okay although he does feel that he is somewhat chronically short of breath on exertion. No chest pain has been present and he has no history of coronary artery disease in the past. He has had an echo two or three years ago and relates that that was unremarkable. PAST MEDICAL HISTORY: 1. Otherwise significant for hypertension. 2. He has a questionable type 2 diabetes, probably takes no medication for that. 3. He is on Atorvastatin for hyperlipidemia. ALLERGIES ARE TO PENICILLIN AND BACTRIM. SOCIAL HISTORY: He does not drink. He is a former smoker but stopped 5 years ago, although he is using electronic cigarettes now. He does not use recreational drugs. PHYSICAL EXAMINATION He is awake and alert. He is in no acute distress. VITAL SIGNS: His blood pressures 150/90, pulse is 70 and regular. Neck: There is no neck vein distension. Carotids are normal. Lungs: Clear. Cardiovascular: Exam reveals irregularly irregular rhythm. There is no significant murmur present. No gallop is noted. Abdomen: Soft, no tenderness. Extremities: Reveal no edema. ASSESSMENT The patient has chronic atrial fibrillation. He had a 10 beat run of ventricular tachycardia last night for which we have been consulted. He has no symptoms to suggest angina or congestive failure. Chest x-ray shows no evidence for failure as well. At this point in time we will repeat his echocardiogram to evaluate his LV function and also order Lexiscan to evaluate him for ischemic heart disease. I have ordered a hemoglobin A1c to see where he is with his diabetic status. If he is diabetic, then we will need to also consider anticoagulation. Further recommendations pending the outcome of the above tests. MD MARCEL Tenorio/DEIDRA /2:02 PM /4:02 PM
[2016-05-13 18:10] LABS: HEMOGLOBIN A1a 1.2 %; HEMOGLOBIN A1b 2.2 %; HEMOGLOBIN Ao 80.5 %; HEMOGLOBIN LA1C 2.4 %; HEMOGLOBIN P3 4.6 %
--- NOTE | 2016-05-13 19:00 | EC ---
Study Study Date:05/13/2016 STUDY CONCLUSIONS SUMMARY LEFT VENTRICLE: The cavity size was normal. Wall thickness was normal. Systolic function was normal. The estimated ejection fraction was in the range of 55% to 60%. Wall motion was normal; there were no regional wall motion abnormalities. If LV function is below 40, please consider prescribing an ACEI or ARB or document rationale for non-use. PROCEDURE DATA STUDY STATUS: Elective. Procedure: Transthoracic echocardiography. Image quality was good. Scanning was performed from the parasternal, apical, and subcostal acoustic windows. Study completion: The patient tolerated the procedure well. Transthoracic echocardiography. M-mode, complete 2D, complete spectral Doppler, and color Doppler. Height: Height: 73in. Weight: Weight: 248.5lb. Body mass index: BMI: 32.9kg/m^2. Body surface area: BSA: 2.36m^2. Patient status: Inpatient. CARDIAC ANATOMY LEFT VENTRICLE: The cavity size was normal. Wall thickness was normal. Systolic function was normal. The estimated ejection fraction was in the range of 55% to 60%. Wall motion was normal; there were no regional wall motion abnormalities. AORTIC VALVE: Trileaflet; normal thickness leaflets. Doppler: Transvalvular velocity was within the normal range. There was no stenosis. No regurgitation. AORTA: Aortic root: The aortic root was normal in size. MITRAL VALVE: Structurally normal valve. Doppler: Transvalvular velocity was within the normal range. There was no evidence for stenosis. No regurgitation. Valve area by pressure half-time: 4.07cm^2. Indexed valve area by pressure half-time: 1.72cm^2/m^2. LEFT ATRIUM: The atrium was normal in size. RIGHT VENTRICLE: The cavity size was normal. Wall thickness was normal. PULMONIC VALVE: Doppler: Transvalvular velocity was within the normal range. There was no evidence for stenosis. No regurgitation. TRICUSPID VALVE: Structurally normal valve. Doppler: Transvalvular velocity was within the normal range. No regurgitation. Peak gradient: 22mm Hg (D). PULMONARY ARTERY: The main pulmonary artery was normal-sized. Systolic pressure was within the normal range. RIGHT ATRIUM: The atrium was normal in size. PERICARDIUM: There was no pericardial effusion. SYSTEMIC VEINS: Inferior vena cava: The vessel was normal in size. Patient weight: 248.5lb _Ejection fraction:_ 65-75% _Fractional shortening:_ 32% up to 5Kg 5-11.5Kg 11.6-22.9Kg 23-45Kg 45-57Kg Aortic Root 7-13 <17 13-22 17-27 17-27 LA diam 6-13 <23 24-38 33-47 37-40 RVID 10-17 7-15 7-15 7-18 8-17 LVIDd 12-22 <32 24-38 33-47 37-40 LVPW 2-4 3-6 5-7 6-8 7-8 IVS 2-4 3-6 5-7 6-8 7-8 BASIC MEASUREMENTS ADULT NORMAL Left ventricle LV internal dimension, ED, chordal *39.1 mm 43-52 level, PLAX LV internal dimension, ES, chordal 26.5 mm 23-38 level, PLAX Fractional shortening, chordal level, 32 % >29 PLAX LV posterior wall thickness, ED 11.8 mm IVS/LVPW ratio, ED 1.01 <1.3 Volume, ED, MOD, 1-plane 76 ml Volume, ES, MOD, 1-plane 32 ml Ejection fraction, MOD, 1-plane 58 % Stroke volume, MOD, 1-plane 44 ml Volume index, ED, MOD, 1-plane 32 ml/m^2 Volume index, ES, MOD, 1-plane 14 ml/m^2 Stroke index, MOD, 1-plane 18.6 ml/m^2 Ventricular septum Septal thickness, ED 11.9 mm Aortic valve Leaflet separation 20 mm 15-26 Left atrium Anterior-posterior dimension 43 mm Anterior-posterior dimension index 1.82 cm/m^2 <2.2 Right ventricle RV internal dimension, ED, PLAX 29.4 mm 19-38 BASIC MEASUREMENTS ADULT NORMAL Aortic valve Leaflet separation 20 mm 15-26 Aorta Root diameter, ED 37 mm 20-37 Left atrium Anterior-posterior dimension, ES *45 mm 19-40 Anterior-posterior dimension index, ES 1.91 cm/m^2 <2.2 LA/aortic root ratio 1.22 DOPPLER MEASUREMENTS ADULT NORMAL Aortic valve Peak velocity, S 115 cm/s Mitral valve Pressure half-time 54 ms Valve area, pressure half-time 4.07 cm^2 Valve area index, pressure half-time 1.72 cm^2/m^2 Tricuspid valve Peak gradient, D 22 mm Hg Maximal inflow velocity 233 cm/s Systemic veins Estimated CVP 10 mm Hg Pulmonic valve Peak velocity, S 67.9 cm/s LEGEND: Mean values are shown as u=mean value. Asterisk (*) brothers values outside specified normal range. Prepared and signed by Zia Bradley [id number]
[2016-05-13] MEDS: PRAVASTATIN SOD 40 MG TAB PO SCH (21:44)
[2016-05-14] VITALS: BP 146/95; PULSE 65; RESP 19; TEMP 98; O2SAT 97
[2016-05-14 04:00] VITALS: BP 152/94; PULSE 73; RESP 18; TEMP 99.2; O2SAT 94
[2016-05-14] MEDS: AZTREONAM INJ 2,000 MG in SODIUM CHLORIDE 0.9% INJ 100 ML IV SCH (05:42)
[2016-05-14] MEDS: GABAPENTIN 300 MG CAP PO SCH (05:42)
[2016-05-14] MEDS: INSULIN ASPART SUPPLEMENTAL SCALE SQ SCH ×2 (05:43→11:00)
--- NOTE | 2016-05-14 08:01 | PD.CARD.PN ---
Subjective Subjective Remarks denies any CV complaints (Jeremias Espinosa) Objective Vital Signs / I&O Vital Signs Date Time Temp Pulse Resp B/P Pulse Ox O2 Delivery O2 Flow Rate FiO2 05/14/16 04:00 99.2 73 18 152/94 94 05/14/16 00:00 98.0 65 19 146/95 97 05/13/16 20:00 61 05/13/16 20:00 98.6 66 19 149/68 97 05/13/16 19:48 97 21 05/13/16 16:00 98.1 62 18 163/99 96 I/O 05/13/16 05/13/16 05/13/16 05/14/16 05/14/16 05/14/16 07:00 15:00 23:00 07:00 15:00 23:00 Intake Total 750 ml 677 ml 1193 ml 100 ml Output Total 800 ml 300 ml 550 ml Balance 750 ml -123 ml 893 ml -450 ml Intake Oral 240 ml 840 ml 0 ml IV Total 510 ml 677 ml 353 ml 100 ml Output Urine Total 800 ml 300 ml 550 ml # Voids 2 3 # Bowel Movements 0 0 0 Physical Exam GENERAL: Well-nourished, well-developed patient in no apparent distress. NECK: No JVD. No carotid bruit. CARDIOVASCULAR: IR IR S1/S2 no murmur, rub, or gallop. RESPIRATORY: No accessory muscle use. Clear to auscultation. Breath sounds equal bilaterally. GASTROINTESTINAL: Abdomen soft, non-tender, nondistended. MUSCULOSKELETAL: Extremities without clubbing, cyanosis, or edema. Laboratory Laboratory Tests Test 05/13/16 14:56 Hemoglobin A1c 8.7 % (Jeremias Espinosa) Assessment and Plan Problem List: (1) Atrial fibrillation (2) HTN (hypertension) Assessment and Plan Echo shows normal systolic heart function, further recommendation will depend on Lexiscan SPECT outcome. No further VT (Jeremias Espinosa) Assessment and Plan NSVT - 8 beats today. asymptomatic. lexiscan negative for ischemia. EF normal on echo. cont BB. arrhythmia may be induced secondary to increased adrenergic tone. outpatient 24 hr holter. if continued episodes of VT, may need to consider EP eval +/- ablation ok for DC FU with Dr. gonzalez (Hal Bernal MD) Jeremias Espinosa May 14, 2016 08:01 Hal Bernal MD May 14, 2016 13:50
[2016-05-14] MEDS ORDERED: REGADENOSON INJ 0.4 MG/5 ML SYR IV ONE (08:37)
[2016-05-14] MEDS: RESP: ALBUTEROL 2.5 MG/IPRATROPIUM 0.5 MG NEB (SCH) NEB (09:09)
[2016-05-14 09:12] VITALS: O2SAT 97
--- NOTE | 2016-05-14 09:13 | RADHPO ---
EXAM DATE/TIME: 05/13/2016 17:35 [facility] COMPARISON: No previous studies available for comparison. INDICATIONS : Ventricular tachycardia with dyspnea. Atrial fibrillation. DOSE: 31.2 mCi Tc99m Myoview at stress. 30.1 mCi Tc99m Myoview at rest. 0.4 mg Lexiscan STRESS SYMPTOMS: Dyspnea and dizziness. EJECTION FRACTION: 63% MEDICAL HISTORY : Diabetes mellitus type 2. Hypertension. SURGICAL HISTORY : Tonsillectomy. Spinal stimulator, morphine pump and back surgery. ENCOUNTER: Initial ACUITY: 1 day PAIN SCALE: 0/10 LOCATION: chest TECHNIQUE: The patient underwent pharmacologic stress with infusion of prescribed dose. Continuous ECG tracing was monitored during stress. Gated SPECT imaging was performed after stress and conventional SPECT i maging was performed at rest. The examination was performed on a SPECT/CT scanner, both attenuation and non-corrected datasets were reviewed. FINDINGS: DISTRIBUTION: The maximum perfused segment at stress is in the anterolateral wall. PERFUSION STUDY: The pattern of perfusion at stress is within normal limits. GATED STUDY: There is intact wall motion and thickening without hypokinetic or dyskinetic segments. CONCLUSION: Normal examination. RISK CATEGORY: Low (<1% Annual Mortality Rate) Ricardo García MD on May 14, 2016 at 9:10 Board Certified Radiologist. This report was verified electronically.
[2016-05-14] MEDS: DOCUSATE SODIUM 50 MG/SENNA 8.6 MG TAB PO SCH (09:14)
[2016-05-14] MEDS: MORPHINE SULFATE 15 MG CONTROLLED RELEASE TAB PO SCH (09:15)
[2016-05-14] MEDS: LISINOPRIL 10 MG TAB PO SCH (09:15)
[2016-05-14] MEDS: MORPHINE SULFATE 30 MG CONTROLLED RELEASE TAB PO SCH (09:16)
[2016-05-14] MEDS: MORPHINE SULFATE 60 MG CONTROLLED RELEASE TAB PO SCH (09:16)
[2016-05-14] MEDS: DILTIAZEM-CD 120 MG CAP ER PO SCH (09:17)
[2016-05-14] MEDS: DULoxetine HCl DR 60 MG CAP PO SCH (09:17)
[2016-05-14] MEDS: DIGOXIN 0.25 MG TAB PO SCH (09:17)
[2016-05-14] MEDS: ATENOLOL 50 MG TAB PO SCH (09:17)
[2016-05-14 09:18] VITALS: BP 165/104; PULSE 69; RESP 15; TEMP 99.1; O2SAT 96
[2016-05-14] MEDS: SODIUM CHLORIDE 0.9% FLUSH 10 ML FLUSH IV FLUSH SCH (09:18)
[2016-05-14] MEDS: ASPIRIN 325 MG TAB PO SCH (09:18)
[2016-05-14 10:38] LABS: AUTOMATED NEUTROPHIL # 4.8 TH/MM3 (1.8-7.7); BASOPHIL % 0.3 % (0.0-2.0); EOSINOPHIL # 0.2 TH/MM3 (0-0.4); EOSINOPHIL % 2.4 % (0.0-4.0); HEMATOCRIT 40.2 % (39.0-51.0); HEMO FLAGS DIFF FINAL; LYMPH % 15.2 % (9.0-44.0); MEAN CORPUSCULAR HGB CONC 33.4 % (32.0-36.0); MONO % 7.9 % (0.0-8.0); NEUT % 74.2 % (16.0-70.0); PLATELET COUNT 211 TH/MM3 (150-450); RED BLOOD COUNT 4.32 MIL/MM3 (4.50-5.90); RED CELL DISTRIBUTION WIDTH 14.9 % (11.6-17.2); WHITE BLOOD COUNT 6.5 TH/MM3 (4.0-11.0)
[2016-05-14] MEDS: ENOXAPARIN SODIUM 40 MG/0.4 ML SYRINGE SQ SCH (12:24)
[2016-05-14] MEDS ORDERED: LISINOPRIL 10 MG TAB PO ONE (12:30)
--- NOTE | 2016-05-14 12:37 | HHI.PR ---
Subjective Remarks Ready to go home, feels fine no palpitation Objective Vitals Vital Signs Date Time Temp Pulse Resp B/P Pulse Ox O2 Delivery O2 Flow Rate FiO2 05/14/16 09:18 99.1 69 15 165/104 96 05/14/16 09:12 97 21 05/14/16 04:00 99.2 73 18 152/94 94 05/14/16 00:00 98.0 65 19 146/95 97 05/13/16 20:00 61 05/13/16 20:00 98.6 66 19 149/68 97 05/13/16 19:48 97 21 05/13/16 16:00 98.1 62 18 163/99 96 05/13/16 05/13/16 05/14/16 15:00 23:00 07:00 Intake Total 677 ml 1193 ml 100 ml Output Total 800 ml 300 ml 550 ml Balance -123 ml 893 ml -450 ml Intake Oral 840 ml 0 ml IV Total 677 ml 353 ml 100 ml Output Urine Total 800 ml 300 ml 550 ml # Voids 3 # Bowel Movements 0 0 Result Diagram: 05/14/16 1030 05/13/16 0633 Other Results Last Impressions Myocardial Perfusion Scan Nuc Med 05/13/16 0000 Signed Impressions: Service Date/Time: Friday, May 13, 2016 17:35 - CONCLUSION: Normal examination. RISK CATEGORY: Low (<1%% Annual Mortality Rate) Ricardo García MD Chest X-Ray 05/11/16320 Signed Impressions: Service Date/Time: Wednesday, May 11, 2016 04:16 - CONCLUSION: Mild linear opacities at the lung bases bilaterally likely representing atelectasis. Otherwise, no acute finding is identified. Ricardo Victoria MD Abdomen/Pelvis CT 05/11/16320 Signed Impressions: Service Date/Time: Wednesday, May 11, 2016 05:10 - CONCLUSION: 1. No acute finding is identified within the abdomen or pelvis. 2. There is airspace consolidation in the right lung base. 3. Nonacute findings include hepatomegaly and gallbladder sludge. Ricardo Victoria MD Imaging Last Impressions Chest X-Ray 05/11/16320 Signed Impressions: Service Date/Time: Wednesday, May 11, 2016 04:16 - CONCLUSION: Mild linear opacities at the lung bases bilaterally likely representing atelectasis. Otherwise, no acute finding is identified. Ricardo Victoria MD Abdomen/Pelvis CT 05/11/16 0321 Signed Impressions: Service Date/Time: Wednesday, May 11, 2016 05:10 - CONCLUSION: 1. No acute finding is identified within the abdomen or pelvis. 2. There is airspace consolidation in the right lung base. 3. Nonacute findings include hepatomegaly and gallbladder sludge. Ricardo Victoria MD Objective Remarks Sitting in chair awake and oriented cta no wheezing irregular no edema A/P Problem List: (1) Pneumonia Status: Acute Plan: clinically improving on aztreonam and levaquin will switch to po (2) Atrial fibrillation Status: Chronic Plan: continue agents for rate control, discussed with Dr Bernal and discussed with patient will start on eliquis (3) HTN (hypertension) Status: Chronic Plan: stop saline , cont home medications blood pressure still elevated on 10 of lisinopril will increase dose to 20 mg (4) Chronic pain Status: Chronic Plan: continue morphine , pain meds as recent outpatient note from pain management has appt changed to am with his pain mangement doctor (5) Type 2 diabetes mellitus Status: Chronic Plan: diabetic diet am labs glucose in 180' will add sliding scale hgba1c was 8.7 discussed starting metformin he will f/u with his pcp to get referral to diabetic education (6) V-tach Status: Acute Plan: short runs of vtach lexiscan negative nurse discussed with Dr Bernal who states to make no medication changes and will order outpatient holter monitor Adeline Winter MD May 14, 2016 12:37
[2016-05-14] MEDS ORDERED: NEUR300C PO (13:27)
[2016-05-14] MEDS ORDERED: METF500T4 PO (13:27)
[2016-05-14] MEDS ORDERED: LEVA750T PO (13:27)
[2016-05-14] MEDS ORDERED: DIGO0.25 PO (13:27)
[2016-05-14] MEDS ORDERED: APIX5TAB PO (13:27)
[2016-05-14] MEDS ORDERED: LISI-515 PO (13:27)
[2016-05-14] MEDS ORDERED: LEVOFLOXACIN 750 MG TAB PO SCH (16:00)
[2016-05-15] MEDS ORDERED: LISINOPRIL 20 MG TAB PO SCH (09:00)
--- NOTE | 2016-06-05 20:50 | HHI.DS ---
Discharge Summary Admission Date May 11, 2016 at 06:17 Discharge Date: May 14, 2016 Admitting Diagnosis Sepsis; pneumonia (1) Pneumonia Diagnosis: Principal (2) Atrial fibrillation Diagnosis: Secondary (3) HTN (hypertension) Diagnosis: Secondary (4) Chronic pain Diagnosis: Secondary (5) Type 2 diabetes mellitus Diagnosis: Secondary (6) V-tach Diagnosis: Secondary Consultants Dr. Marquis [facility] Cardiology Brief History Pt presented to Ed After waking with fever and chills . Earlier in week had taken cipro for 2 days for what he thought was diverticulits. Admitted and started on antibiotics for possibly partially treated pneumonia.Had temp of 103 at presentation to ER. Imaging Last Impressions Myocardial Perfusion Scan Nuc Med 05/13/16 0000 Signed Impressions: Service Date/Time: Friday, May 13, 2016 17:35 - CONCLUSION: Normal examination. RISK CATEGORY: Low (<1%% Annual Mortality Rate) Ricardo García MD Chest X-Ray 05/11/16 0321 Signed Impressions: Service Date/Time: Wednesday, May 11, 2016 04:16 - CONCLUSION: Mild linear opacities at the lung bases bilaterally likely representing atelectasis. Otherwise, no acute finding is identified. Ricardo Victoria MD Abdomen/Pelvis CT 05/11/161 Signed Impressions: Service Date/Time: Wednesday, May 11, 2016 05:10 - CONCLUSION: 1. No acute finding is identified within the abdomen or pelvis. 2. There is airspace consolidation in the right lung base. 3. Nonacute findings include hepatomegaly and gallbladder sludge. Ricardo Victoria MD PE at Discharge Sitting in chair awake and oriented cta no wheezing irregular no edema Hospital Course Admitted and placed on antibiotics. Had history of diet controlled diabetes and was covered with sliding scale. Hgba1c was 8.7. His metformin was to be resumed as outpatient. He developed nonsustained vtach ans was seen by cardiology and had neg nuclear stress test and echo with ef of 55-60 %. He was to follow with them as outpatient for holter.His home medications were continued. Pt Condition on Discharge: Stable Discharge Disposition: Discharge Home Discharge Instructions DIET: Follow Instructions for: Diabetic Diet Activities you can perform: Regular-No Restrictions Follow up Referrals: Cardiology - [address] Bernal PCP Follow-up - [address] Bowens New Medications: Apixaban (Eliquis) 5 Mg Tab 5 MG PO BID Blood Clot Prevention #60 Ref 0 TAB Metformin ER (Metformin ER) 500 Mg Maia 500 MG PO DAILY With evening meal Blood Sugar Management #30 Ref 0 TAB Digoxin (Digoxin) 0.25 Mg Tab 0.25 MG PO DAILY fibrillation #30 TAB Gabapentin (Neurontin) 300 Mg Cap 1200 MG PO Q8HR Pain Management #90 CAP Levofloxacin (Levaquin) 750 Mg Tab 750 MG PO DAILY@16 pneumonia #7 TAB Lisinopril (Lisinopril) 20 Mg Tab 20 MG PO DAILY htn #30 TAB Continued Medications: Atenolol (Tenormin) 50 Mg Tab 50 MG PO BID Blood Pressure Management #60 Ref 0 TAB Xnkxbkvfwx-Wwdlhkemgsglk-Otnuqanf (Fioricet) 50-300-40 Mg Cap 1 CAP PO Q8HR PRN HEADACHE Ref 0 CAP Coenzyme Q10 (Ubidecarenone) (Coq10) 200 Mg Cap 200 MG PO DAILY Diazepam (Valium) 10 Mg Tab 10 MG PO BID PRN MILD ANXIETY Ref 0 TAB Dicyclomine (Dicyclomine) 10 Mg Cap 10 MG PO TID Bowel Management Ref 0 CAP Digoxin (Digoxin) 0.25 Mg Tab 0.25 MG PO DAILY Regulate Heart Beat #30 Ref 0 TAB Diltiazem ER 24 HR (Cartia Xt) 120 Mg Caper 120 MG PO BID #[address] Ref [address] (Cymbalta DR) 60 Mg Capdr 60 MG PO DAILY #30 Ref 0 CAP Ergocalciferol (Vitamin D) 50,000 Unit Cap 89763 UNITS PO Q7D Nutritional Supplement #30 Ref 0 CAP Hydrocodone-Acetaminophen (Lortab) 10-325 Mg Tab 1 TAB PO Q4H PRN PAIN Ref 0 TAB Magnesium (Magnesium) 200 Mg Tab 200 MG PO DAILY TAB Morphine ER (Morphine ER) 100 Mg Tab 100 MG PO BID Pain Management Ref 0 TAB Morphine ER (Morphine ER) 60 Mg Tab 60 MG PO DAILY Pain Management Ref 0 TAB Pravastatin (Pravastatin) 40 Mg Tab 40 MG PO DAILY Cholesterol Management #30 Ref 0 TAB Tizanidine (Zanaflex) 4 Mg Tab 4 MG PO TID Muscle Spasm Ref 0 TAB ([Ocuvite-Lutcin]) 25 MG PO DAILY Discontinued Medications: Aspirin (Aspirin) 325 Mg Tab 325 MG PO DAILY #30 Ref 0 TAB Ciprofloxacin (Cipro) 500 Mg Tab 500 MG PO BID Infection Ref 0 TAB Gabapentin (Neurontin) 600 Mg Tab 600 MG PO BID #60 Ref 0 TAB Ibuprofen (Ibuprofen) 600 Mg Tab 600 MG PO Q6H PRN FEVER Ref 0 TAB Loratadine-Pseudoephedrine 24 HR (Claritin-D 24 HR) 10-240 Mg Tab 1 TAB PO DAILY Allergy Management Ref 0 TAB Oxycodone ER (Oxycontin) 10 Mg Tab 10 MG PO Q8HR Pain Management Ref 0 TAB Adeline Winter MD Jun 05, 2016 20:50
== END 2016-05-14 15:14 | disposition home or self-care (01) | DRG 871 ==
LOC: PHED 02:55 → PHEDA 06:17 → PHEDH 10:25 → PH3B 16:52
PROVIDERS: ADMIT Legal Medicine; ATTEND Legal Medicine
DX: A41.9 Sepsis, unspecified organism (principal); J18.9 Pneumonia, unspecified organism; R65.21 Severe sepsis with septic shock; I47.2 Ventricular tachycardia; E87.2 Acidosis; I48.2 Chronic atrial fibrillation; J98.11 Atelectasis; E11.9 Type 2 diabetes mellitus without complications; E78.5 Hyperlipidemia, unspecified; G89.4 Chronic pain syndrome; I10 Essential (primary) hypertension; K21.9 Gastro-esophageal reflux disease without esophagitis; K59.00 Constipation, unspecified; Z79.82 Long term (current) use of aspirin; Z87.891 Personal history of nicotine dependence
CPT/HCPCS: 71010; 74177; 78452; 80053; 81001; 82948; 83036; 83605; 83690; 83735; 84484; 85025; 85610; 85730; 87040; 87449; 87506; 93005; 93017; 93306; 94640; 94664; 96365; 96367; A9502; J1650; J1956; J2785; J3370; J7030; J7040; Q9967